=== PATIENT | female | born 2000 | race Two or more races ===

== ENCOUNTER 2019-05-04 21:49 | Observation (INO) | payer MEDICAID ==
[~2019-05-04] VITALS: Ht 157.5 cm; Wt 59.0 kg
[2019-05-04] MEDS ORDERED: PREN-153 OR (22:21)
[2019-05-04] MEDS ORDERED: LACTATED RINGER'S 1,000 ML IV ONE (22:43)
[2019-05-04] MEDS ORDERED: TERBUTALINE SULFATE 1 MG/ML 1ML VIAL SC SCH (22:45)
[2019-05-04] MEDS ORDERED: TERBUTALINE SULFATE 1 MG/ML 1ML VIAL SC ONE (22:46)
[2019-05-04] MEDS ORDERED: ACETAMINOPHEN 325 MG TAB PO ONE (23:15)
== END 2019-05-05 02:20 | disposition home or self-care (01) | DRG 566 ==
LOC: LDRP 21:49
PROVIDERS: ADMIT Obstetrics & Gynecology; ATTEND Obstetrics & Gynecology
DX: O9A.212 Injury, poisoning and certain other consequences of external causes complicating pregnancy, second trimester (principal); O99.89 Other specified diseases and conditions complicating pregnancy, childbirth and the puerperium; M79.604 Pain in right leg; S39.91XA Unspecified injury of abdomen, initial encounter; R51 Headache; M79.605 Pain in left leg; Z3A.25 25 weeks gestation of pregnancy; W50.0XXA Accidental hit or strike by another person, initial encounter; Y93.89 Activity, other specified; Y92.89 Other specified places as the place of occurrence of the external cause
CPT/HCPCS: 59025; 76805; 94760; 96372; G0378; J3105; 96365; 96366

== ENCOUNTER 2020-05-23 12:48 | Emergency (ER) | payer MEDICAID ==
[~2020-05-23] VITALS: Ht 157.5 cm; Wt 55.3 kg
[~2020-05-23 12:48] MED LIST: PREN-153 OR
[2020-05-23 13:33] VITALS: BP 111/69
== END 2020-05-23 19:23 | disposition left against medical advice (07) ==
LOC: ER 12:48
DX: U07.1 COVID-19 (principal); Z53.21 Procedure and treatment not carried out due to patient leaving prior to being seen by health care provider
CPT/HCPCS: 36415; 87426

== ENCOUNTER 2021-01-01 20:51 | Emergency (ER) | payer MEDICAID ==
[~2021-01-01] VITALS: Ht 157.5 cm; Wt 55.3 kg
[~2021-01-01 20:51] MED LIST changes: -PREN-153 OR; +PREN1TAB71 OR
[2021-01-01 20:54] VITALS: BP 98/61
[2021-01-01] MEDS ORDERED: cefTRIAXone SOD 1,000 MG VL IM ONE (23:00)
[2021-01-01] MEDS ORDERED: AZITHROMYCIN 250 MG TAB PO ONE (23:00)
[2021-01-01] MEDS ORDERED: LIDOCAINE VISCOUS 2% 15ML UD PO ONE (23:30)
[2021-01-01] MEDS ORDERED: LIDOCAINE HCL 2% TOP JELLY 5ML TOP ONE (23:30)
[2021-01-02 03:13] LABS: Urine Bacteria MANY /hpf (None Seen); Urine Blood 1+ /uL (Negative); Urine Hyaline Cast MANY /lpf (0 - 2); Urine Mucus FEW (None Seen); Urine Specific Gravity 1.022 (1.001-1.035); Urine WBC 186 /hpf (0 - 5); Urine WBC Clumps PRESENT /hpf (None Seen)
== END 2021-01-02 02:06 | disposition home or self-care (01) ==
LOC: ER 20:53
DX: N76.0 Acute vaginitis (principal); N39.0 Urinary tract infection, site not specified; Z72.51 High risk heterosexual behavior; Z20.2 Contact with and (suspected) exposure to infections with a predominantly sexual mode of transmission; Z32.02 Encounter for pregnancy test, result negative
CPT/HCPCS: 81001; 81025; 87070; 87210; 87491; 87591; 96372; 99284; J0696